=== PATIENT | female | born 1955 | race Caucasian/White ===

== ENCOUNTER 2017-04-02 20:40 | Emergency (ER) | payer BC, MEDICARE ==
[~2017-04-02] VITALS: Ht 154.9 cm; Wt 61.2 kg
[2017-04-02 20:40] VITALS: BP 165/78
[2017-04-02] MEDS ORDERED: LIDOCAINE 1% / SOD BICARB 8.4% 20 ML VIAL. IJ ONE ×2 (21:37→21:45)
[2017-04-02] MEDS ORDERED: CEPH-264 PO (21:56)
--- NOTE | 2017-04-02 21:57 | PHYS DOC ---
Past Medical History Past Medical History: Hypertension Additional Past Medical Histor: cirrhosis, trigeminal nerve problem, back pain Past Surgical History: Cholecystectomy, Hysterectomy, Knee Replacement Additional Past Surgical Histo: lumbar decompression,cervical fusion Alcohol Use: None Drug Use: None Adult General Chief Complaint Chief Complaint: LACERATION/AVULSION [facility] 61-year-old female status post laceration of the left hand. Just prior to arrival patient was trying to cut a zip tie with a kitchen knife when it slipped and stabbed the back of her hand near her thumb. He is allergic to tetanus.. Patient dates the knife wasn't grossly contaminated but was in the sink before she used it. She is able to flex and extend her thumb normally. Normal sensation. Patient has no history of anticoagulation or coagulopathy. Review of Systems Review of Systems Constitutional: Denies fever or chills [] Eyes: Denies change in visual acuity, redness, or eye pain [] HENT: Denies nasal congestion or sore throat [] Respiratory: Denies cough or shortness of breath [] Cardiovascular: No additional information not addressed in HPI [] GI: Denies abdominal pain, nausea, vomiting, bloody stools or diarrhea [] : Denies dysuria or hematuria [] Musculoskeletal: Denies back pain or joint pain [] Integument: Denies rash or skin lesions [] Neurologic: Denies headache, focal weakness or sensory changes [] Endocrine: Denies polyuria or polydipsia [] Allergies Allergies Allergies Coded Allergies Type Severity Reaction Last Updated Verified shellfish derived Allergy Severe 04/02/17 Yes Tetanus Vaccines and Toxoid Allergy Intermediate 04/02/17 Yes vancomycin Allergy Intermediate 04/02/17 Yes Physical Exam Physical Exam Well-appearing patient no acute distress 1.5 cm laceration dorsum of left hand on the radial aspect of the first metacarpal. No evidence of joint involvement. No evulsion no gross contamination no palpable foreign body. Normal flexion and extension against resistance. Neurovascularly intact distally Constitutional: Well developed, well nourished, no acute distress, non-toxic appearance. [] HENT: Normocephalic, atraumatic, bilateral external ears normal, oropharynx moist, no oral exudates, nose normal. [] Eyes: PERRLA, EOMI, conjunctiva normal, no discharge. [] Neck: Normal range of motion, no tenderness, supple, no stridor. [] Cardiovascular:Heart rate regular rhythm, no murmur [] Lungs & Thorax: Bilateral breath sounds clear to auscultation [] Abdomen: Bowel sounds normal, soft, no tenderness, no masses, no pulsatile masses. [] Skin: Warm, dry, no erythema, no rash. [] Back: No tenderness, no CVA tenderness. [] Extremities: No tenderness, no cyanosis, no clubbing, ROM intact, no edema. [] Neurologic: Alert and oriented X 3, normal motor function, normal sensory function, no focal deficits noted. [] Psychologic: Affect normal, judgement normal, mood normal. [] Current Patient Data Vital Signs Vital Signs Date Time Temp Pulse Resp B/P (MAP) Pulse Ox O2 Delivery O2 Flow Rate FiO2 04/02/17 20:40 98.4 91 20 96 Room Air 98.4 EKG EKG [] Radiology/Procedures Radiology/Procedures [] Course & Med Decision Making Course & Med Decision Making Pertinent Labs and Imaging studies reviewed. (See chart for details) She with uncomplicated laceration left hand with normal flexion and extension of the thumb without evidence of neurovascular compromise. She cannot get tetanus as she is allergic to it. Even that it was a knife out of her kitchen sink and by prophylaxis initiated. Wound repaired C note. Sterile dressing applied. Patient will follow-up with PCP in 2 days for wound check and 10 days for suture removal. Suture repair of 1.5 cm wound dorsum left hand by ER Facundo 1% lidocaine infused into wound site. Positive anesthesia. Wound irrigated with the [place] tap water irrigation for 5 minutes. Sterile compress applied. 4 interrupted 5-0 Prolene sutures placed with good approximation and hemostasis. Patient tolerated well without complication. Sterile dressing applied[] Dragon Disclaimer Dragon Disclaimer This electronic medical record was generated, in whole or in part, using a voice recognition dictation system. Departure Departure Impression: Primary Impression: Hand laceration Disposition: 01 HOME, SELF-CARE Condition: IMPROVED Referrals: NO PCP (PCP) Patient Instructions: Laceration Care, Adult, Sutured Wound Care Additional Instructions: Your wound has been repaired with removable sutures. Wash and change dressing daily. Follow-up with your doctor in 2 days for a wound check and 10 days for suture removal. Finish Keflex as prescribed to prevent infection. return for signs of infection despite antibiotic therapy Scripts Cephalexin (KEFLEX) 500 Mg Capsule 1 CAP PO QID, #20 CAP Prov: VANNESSA MARSHALL MD 04/02/17 VANNESSA MARSHALL MD Apr 02, 2017 21:56
[2017-04-02] MEDS ORDERED: CEPHALEXIN 250 MG CAPSULE. ONE (22:43)
[2017-04-02] MEDS ORDERED: HYDROcodone/APAP 5/325MG 1 TAB TABLET ONE (22:49)
[2017-04-02] MEDS ORDERED: HYDROcodone/APAP 5/325MG 1 TAB TABLET PO ONE (23:30)
[2017-04-02] MEDS ORDERED: CEPHALEXIN 250 MG CAPSULE. PO ONE (23:30)
== END 2017-04-02 23:08 | disposition home or self-care (01) ==
LOC: ER 20:40
DX: S61.412A Laceration without foreign body of left hand, initial encounter (principal); I10 Essential (primary) hypertension; Z88.7 Allergy status to serum and vaccine; Z91.013 Allergy to seafood; Z88.1 Allergy status to other antibiotic agents; W26.0XXA Contact with knife, initial encounter; Y93.89 Activity, other specified; Y92.89 Other specified places as the place of occurrence of the external cause; Y99.8 Other external cause status
CPT/HCPCS: 12001; 99283-25